=== PATIENT | female | born 1975 | race Caucasian/White ===

== ENCOUNTER 2018-11-27 18:31 | Emergency (ER) | payer BC, OTHER ==
[~2018-11-27] VITALS: Ht 160 cm; Wt 72.1 kg
[~2018-11-27 18:31] MED LIST: ACET1TAB40 PO; FAMO-96 PO; FIORICET PO
[2018-11-27 18:39] VITALS: BP 121/64; PULSE 72; RESP 20; Ht 160 cm; Wt 72.1 kg
[2018-11-27] MEDS ORDERED: HYDROCODONE/APAP (5/325) TAB PO ONE (20:30)
[2018-11-27] MEDS ORDERED: ACET500C5 PO (21:43)
--- NOTE | 2018-11-27 22:20 | ERD ---
ER Documentation Chief Complaint Chief Complaint fall 1wk ago; R knee pain and headache; denies passing out/KO HPI 42-year-old female patient with no significant past medical history reports that 1 week ago she was wearing slippers and accidentally fell while walking on rocks. Reports that she hurt her left foot, right knee and her neck. Rates her pain a 7 out of 10. Describes her pain is achy. Denies any head injuries. Denies any loss of consciousness. Eyes any fever, chills, nausea, vomiting, headache, chest pain, shortness of breath, abdominal pain, flank pain, saddle anesthesia, urine or bowel incontinence. ROS All systems reviewed and are negative except as per history of present illness. Medications Home Meds Active Scripts Acetaminophen* (Tylophen*) 500 Mg Capsule, 1 CAP PO Q6H PRN for PAIN AND OR ELEVATED TEMP, #20 CAP Prov:AMANDA MUKHERJEE PA-C 11/27/18 Acetamin/Butalbital/Caffeine* (Fioricet*) [id number] Tab, 1 TAB PO Q6H PRN for PAIN, #10 TAB Prov:FLORA TOBIAS NP 08/27/16 Acetaminophen-Codeine* (Acetaminophen-Cod #3*) 300-30 Mg Tab, 1 TAB PO Q4H PRN for PAIN, #14 TAB Prov:TERRIE PARIS MD 02/02/16 Famotidine* (Pepcid*) 20 Mg Tablet, 20 MG PO BID for 10 Days, TAB Prov:TERRIE PARIS MD 02/02/16 Allergies Allergies: Coded Allergies: No Known Allergy (Unverified , 10/12/11) PMhx/Soc History of Surgery: Yes (gallbladder stone removal) Anesthesia Reaction: No Hx Neurological Disorder: No Hx Respiratory Disorders: No Hx Cardiac Disorders: No Hx Psychiatric Problems: No Hx Miscellaneous Medical Probl: No Hx Alcohol Use: No Hx Substance Use: No Hx Tobacco Use: No FmHx Family History: No diabetes, No coronary disease Physical Exam Vitals Vital Signs Date Temp Pulse Resp B/P (MAP) Pulse Ox O2 O2 Flow FiO2 Time Delivery Rate 11/27/18 98.2 72 20 121/64 98 18:39 (83) Physical Exam Const: [id number], well-nourished. In no acute distress. Head: Atraumatic, normocephalic. No hematoma. No medeiros sign. No raccoon eyes. Eyes: Normal Conjunctiva without injection. No purulent discharge. PERRLA. EOMI ENT: Normal external ear. Ear canal without erythema. Tympanic membrane pearly bennett without effusion or bulging. No hemotympanum. Nasal canal clear with normal turbinates. Moist oropharynx without tonsillar exudates. Non-erythematous pharynx. Uvula midline. No drooling. No trismus. Neck: No cervical midline tenderness. Full range of motion. No meningismus. No cervical lymphadenopathy. No JVD. Resp: Clear to auscultation bilaterally. No wheezing, rhonchi, rales, or crackles. No accessory muscle use. No retractions. Cardio: Regular rate and rhythm. No murmurs, rubs or gallops. Abd: Soft, non tender, non distended. Normal bowel sounds. No palpable masses. No rebound tenderness. No guarding. Negative McBurney's Point. Negative Reyes's Sign. Skin: Normal skin turgor. No petechiae or rashes Back: No midline tenderness. No CVA tenderness. Ext: No cyanosis, or edema. Distal pulses intact bilaterally. Ecchymosis noted over the dorsal aspect of patient's third, fourth, fifth left toes. Ecchymosis noted over the right patella. Patient had full range of motion of the IP, MTP joints bilaterally. Patient was able to flex, extend her right knee without any difficulty. Limping gait due to pain. Neur: Awake and alert. Normal gait. Normal coordination. Cranial Nerves II- VII intact. Normal finger to nose. Muscle strength 5/5. Sensation intact. Psych: Normal Mood and Affect Results 24 hrs Laboratory Tests Test 11/27/18 21:01 POC Beta HCG, Qualitative NEGATIVE Current Medications Medications Dose Sig/Real Start Time Status Last (Trade) Ordered Route PRN Stop Time Admin Dose Reason Admin 1 tab ONCE ONCE 11/27/18 DC 11/27/18 Acetaminophen PO 20:30 20:40 / 11/27/18 Hydrocodone 20:31 Bitart (Mobile (5/325)) Procedures/MDM 42-year-old female patient with no significant past medical history presents to ED complaining of a mechanical fall that occurred 1 week ago. Patient is afebrile and nontoxic-appearing. A cervical neck, right knee, left foot x-ray was ordered to further evaluate patient. Patient was given Mobile 5-325 mg here in the ED with improvement of her pain. PROCEDURE: XR Cervical Spine. CLINICAL INDICATION: Neck pain TECHNIQUE: AP, lateral , and odontoid views of the cervical spine were performed. COMPARISON: None. FINDINGS: The vertebral body alignment, height and osseous mineralization are normal. Straightening of the cervical lordosis. No fracture or subluxation. There is no facet arthropathy. The uncovertebral joints are unremarkable. The intervertebral disc spaces are well maintained. There are no abnormal calcifications. The prevertebral soft tissues are normal. No radiopaque foreign bodies are identified. IMPRESSION: 1. Normal cervical spine. PROCEDURE: XR Left Foot CLINICAL INDICATION: Fluid injury, pain TECHNIQUE: AP, oblique, and lateral radiographs were submitted. COMPARISON: None FINDINGS: Osseous structures: There is a nondisplaced fracture through the medial shaft of the proximal phalanx of the left third toe. There is a transverse nondisplaced fracture involving the base of the proximal phalanx of the left fourth toe. The remaining visualized osseous elements appear intact. Joint spaces: are well maintained, with no significant spurring, erosion or joint effusion evident. Soft tissues: appear unremarkable. IMPRESSION: 1. Nondisplaced nearly longitudinal fracture seen to the dorsal medial shaft of the proximal phalanx of the left third toe. 2. Nondisplaced transverse fracture involving the base of the proximal phalanx of the left fourth toe. PROCEDURE: knee x-ray CLINICAL INDICATION: Right knee pain and injury. TECHNIQUE: AP, lateral and oblique views of the right knee were obtained. COMPARISON: None FINDINGS: No evidence of fracture or dislocation. The medial, lateral, as well as patellofemoral knee joint compartments are well maintained. No joint effusion. No soft tissue or osseous abnormality. IMPRESSION: 1. No fracture or dislocation. 2. No joint effusion. 3. No soft tissue abnormality. Patient is placed in an sherly wrap of her right knee, john tape of left toes and ortho shoe. Crutches given to patient to help with ambulation. Splint Assessment: Neurovascularly intact pre and post splint placement with good fit. Patient's extremity symptoms have stabilized while they have been evaluated in the department and are appropriate for outpatient follow up. No evidence of dislocations, compartment syndrome, neurologic injury, vascular injury, open joint, open fracture, tendon laceration, septic arthritis, osteomyelitis, DVT, foreign body, or other emergent conditions. Patient is ambulating here in the ED without difficulty. Denies saddle anesthesia, numbness or tingling, urine or bowel incontinence, weakness. Low suspicion for cauda equina syndrome, cord compression, nephrolithiasis, aortic aneurysm, aortic dissection, epidural abscess, spinal hematoma, malignancy, pyelonephritis, or other emergent conditions. Diagnosis: Toe Fracture, Right knee injury, Neck pain Discharge medications: Tylenol Follow up with primary care physician in 1-2 days for a referral to see an orthopedic physician. Instructed patient to return to the ED sooner for any worsening symptoms. Patient's questions were answered. Patient is hemodynamically stable. Patient understood and agreed with discharge plan. Patient discharged stable. Disclaimer: Inadvertent spelling and grammatical errors are likely due to EHR/dictation software use and do not reflect on the overall quality of patient care. Also, please note that the electronic time recorded on this note does not necessarily reflect the actual time of the patient encounter. Departure Diagnosis: Primary Impression: Toe fracture Encounter type: initial encounter Toe: lesser toe Fracture type: closed Phalanx: unspecified phalanx Fracture alignment: nondisplaced Laterality: left Qualified Codes: S92.505A - Nondisplaced unspecified fracture of left lesser toe(s), initial encounter for closed fracture Additional Impressions: Right knee injury Encounter type: initial encounter Qualified Codes: S89.91XA - Unspecified injury of right lower leg, initial encounter Neck pain Condition: Stable Patient Instructions: Finger and Toe Fractures (Broken Finger or Toe), Knee Sprain, Back And Neck Pain, General Referrals: [facility] Usted se ding hecho un examen mdico de control que le indica que no est en breanna condicin que requiera tratamiento urgente en el Departamento de Emergencia. Un estudio ms profundo y el tratamiento de ch condicin pueden esperar sin ningn riesgo hasta que usted sea atendida/o en el consultorio de ch mdico o breanna clnica. Es responsabilidad suya arreglar breanna lalito para el seguimiento del pam. MANEJO DE CONDICIONES NO URGENTES EN EL FUTURO 1) Si usted tiene un mdico de atencin primaria: Usted debera llamar a ch mdico de atencin primaria antes de venir al departamento de emergencia. Despus de las horas de consultorio, ch doctor o ch asociado/a est disponible por telfono. El mdico o enfermero de jason en el servicio telefnico puede asesorarle por judy medio para atender el problema, o pam contrario se puede programar breanna lalito. 2) Si usted no tiene un mdico de atencin primaria: Llame al mdico o clnica de referencia que aparece abajo obi las horas de consultorio para hacer breanna lalito para que le vean. CLINICAS: [facility] [phone] [facility] [phone] [address] [facility] [phone] [address] [facility] [facility] [phone] [address] [facility] [facility] [phone] [address] [facility]. [phone] [address] [facility] () Usoctavio se ding hecho un examen mdico de control que le indica que no est en breanna condicin que requiera tratamiento urgente en el Departamento de Emergencia. Un estudio ms profundo y el tratamiento de ch condicin pueden esperar sin ningn riesgo hasta que usted sea atendida/o en el consultorio de ch mdico o breanna clnica. Es responsabilidad suya arreglar breanna lalito para el seguimiento del pam. MANEJO DE CONDICIONES NO URGENTES EN EL FUTURO 1) Si usted tiene un mdico de atencin primaria: Usted debera llamar a ch mdico de atencin primaria antes de venir al departamento de emergencia. Despus de las horas de consultorio, ch doctor o ch asociado/a est disponible por telfono. El mdico o enfermero de jason en el servicio telefnico puede asesorarle por judy medio para atender el problema, o pam contrario se puede programar breanna lalito. 2) Si usted no tiene un mdico de atencin primaria: Llame al mdico o condado institucions de referencia que aparece abajo obi las horas de consultorio para hacer breanna lalito para que le vean. SI USTED NO PUEDE PAGAR PARA ERVIN UN MEDICO puede ir a: [facility] [address] [place] [address] [facility] [address] [place] [address] [facility] [address] [place] [address] [facility] [address] [place] [address] [facility] Ur[facility] Care 7 a.m.- 11 p.m. Every Day of the Week NO APPOINTMENT OR AUTHORIZATION NEEDED Additional Instructions: Seguimiento con un mdico ortopdico. Dgale a la secretaria que nosotros le instruimos hacer esta lalito.Avise o llame si ch condicin se empeora antes de la lalito. Regresa aqui si peor o no mejor. AMANDA MUKHERJEE PA-C Nov 27, 2018 22:20
== END 2018-11-27 22:57 | disposition home or self-care (01) ==
LOC: FTE 18:31
DX: S92.505A Nondisplaced unspecified fracture of left lesser toe(s), initial encounter for closed fracture (principal); S19.9XXA Unspecified injury of neck, initial encounter; W18.39XA Other fall on same level, initial encounter; Y92.9 Unspecified place or not applicable
CPT/HCPCS: 72040; 73562; 73630; 81025; Z7502; Z7610

== ENCOUNTER 2019-09-29 11:25 | Emergency (ER) | payer OTHER ==
[~2019-09-29] VITALS: Wt 79.0 kg
[~2019-09-29 11:25] MED LIST changes: +ACET500C5 PO; +BEN25 PO; +BUTA1CAP38 PO; +IBUP-1542 PO
[2019-09-29 11:28] VITALS: BP 111/58; PULSE 70; RESP 18
[2019-09-29] MEDS ORDERED: DIPHENHYDRAMINE 50 MG INJ IV STA (12:36)
[2019-09-29] MEDS ORDERED: METOCLOPRAMIDE 10 MG INJ IV STA (12:36)
[2019-09-29] MEDS ORDERED: KETOROLAC 30 MG INJ IV STA (12:36)
== END 2019-09-29 14:37 | disposition home or self-care (01) ==
LOC: FTE 11:25
DX: R51 Headache (principal)
CPT/HCPCS: 36415; 81025; 96374; 96375; J1200; J1885; J2765; Z7502